=== PATIENT | female | born 1990 | race Caucasian/White ===

== ENCOUNTER 2017-11-20 18:03 | Emergency (ER) | payer BC ==
[2017-11-20 18:47] LABS: #Eosinphils 0.1 thou/uL (0.0-0.7); #Lymphocytes 2.5 thou/uL (1.20-3.40); #Monocytes 0.2 thou/uL (0.11-0.59); #Neutrophils 6.3 thou/uL (1.40-6.50); %Basophils 0.2 % (0.0-1.0); %Eosinophils 1.2 % (0.0-10.0); %Monocytes 2.5 % (0.0-10.0); %Neutrophils 69.2 % (42.0-75.0); Hemoglobin 12.6 g/dL (12.0-16.0); Mean Corpuscular HGB CONC 32.5 g/dL (32.0-36.0); Mean Corpuscular Hemoglobin 27.5 pg (27.0-31.0); Mean Corpuscular Volume 84.5 fl (81.0-99.0); Mean Platelet Volume 11.7 fL (7.4-10.4); Platelet Count 191 thou/uL (130-400); RBC Distribution Width 13.2 % (11.5-14.5); Red Blood Cell (RBC) Count 4.58 mill/uL (4.20-5.40); White Blood Cell (WBC) Count 9.1 thou/uL (4.8-10.8)
[2017-11-20 19:10] LABS: Pregnancy Test - Urine (BHCG) Negative (Negative); Pregu Control Background? CLEAR/WHITE (CLR/WHITE); Pregu Control Bar Appear? YES (CONTROL BAR); Specific Gravity 1.017 (1.002-1.036)
[2017-11-20 19:10] LABS: ALT (SGPT) 19 U/L (8-55); AST (SGOT) 21 U/L (5-34); Albumin 4.1 g/dL (3.5-5.0); Alkaline Phosphatase 116 U/L (40-150); Anion Gap 13 mmol/L (10-20); BUN (Urea Nitrogen) 12 mg/dL (7.0-18.7); Bilirubin, Total 0.3 mg/dL (0.2-1.2); CK (CPK) 149 U/L (29-168); Calc. Creatinine Clearance 0 mL/min (70-130); Calcium 9.7 mg/dL (7.8-10.44); Carbon Dioxide 24 mmol/L (22-29); Chloride 106 mmol/L (98-107); Estimated GFR-MDRD 69; Globulin 3.3 g/dL (2.4-3.5); Glucose 101 mg/dL (70-105); Lipase 51 U/L (8-78); Potassium 3.4 mmol/L (3.5-5.1); Protein, Total 7.4 g/dL (6.0-8.3); Sodium 140 mmol/L (136-145)
[2017-11-20 19:13] LABS: Bilirubin Negative (Negative); Blood, Urine Negative (Negative); Clarity CLEAR (Clear); Glucose, Urine (Dipstick) Negative (Negative); Leukocyte Negative (Negative); Nitrite Negative (Negative); Protein, Urine (Dipstick) Negative (Neg-Trace); Specific Gravity, Urine 1.018 (1.002-1.036); Urobilinogen 0.2 mg/dL (0.2-1.0); pH, Urine 6.5 (5.0-9.0)
[2017-11-20] MEDS ORDERED: Mag-Al 1200 mg/1200 mg/30 ML UDCUP ONE (19:36)
[2017-11-20] MEDS ORDERED: Ondansetron ODT 8 MG TAB ONE (19:36)
[2017-11-20] MEDS ORDERED: Lidocaine Viscous Sol 2% 15 ml UD Cup ONE (19:36)
== END 2017-11-20 20:49 | disposition home or self-care (01) ==
LOC: ERS 18:03
DX: R10.13 Epigastric pain (principal); F41.9 Anxiety disorder, unspecified; F32.9 Major depressive disorder, single episode, unspecified; Z79.899 Other long term (current) drug therapy
CPT/HCPCS: 36415; 80053; 81003; 81025; 82550; 83690; 85025; 87086; 99284

== ENCOUNTER 2017-12-02 15:19 | Outpatient (CLI) | payer BC ==
[2017-12-02 16:11] LABS: #Eosinphils 0.1 thou/uL (0.0-0.7); #Lymphocytes 2.2 thou/uL (1.20-3.40); #Monocytes 0.5 thou/uL (0.11-0.59); #Neutrophils 7.6 thou/uL (1.40-6.50); %Basophils 0.4 % (0.0-1.0); %Lymphocytes 21.2 % (21.0-51.0); %Monocytes 4.6 % (0.0-10.0); %Neutrophils 72.8 % (42.0-75.0); Hemoglobin 12.5 g/dL (12.0-16.0); Mean Corpuscular HGB CONC 31.8 g/dL (32.0-36.0); Mean Corpuscular Hemoglobin 27.1 pg (27.0-31.0); Mean Corpuscular Volume 85.2 fl (81.0-99.0); Mean Platelet Volume 9.7 fL (7.4-10.4); Platelet Count 256 thou/uL (130-400); RBC Distribution Width 13.4 % (11.5-14.5); Red Blood Cell (RBC) Count 4.61 mill/uL (4.20-5.40); White Blood Cell (WBC) Count 10.5 thou/uL (4.8-10.8)
[2017-12-02 16:12] LABS: BHCG - Serum Negative (NEGATIVE); Pregs Control Background? CLEAR/WHITE (CLR/WHITE); Pregs Control Bar Appear? YES (CONTROL BAR)
[2017-12-02 16:30] LABS: ALT (SGPT) 65 U/L (8-55); AST (SGOT) 30 U/L (5-34); Albumin 4.2 g/dL (3.5-5.0); Alkaline Phosphatase 135 U/L (40-150); Anion Gap 15 mmol/L (10-20); BUN (Urea Nitrogen) 10 mg/dL (7.0-18.7); Bilirubin, Direct 0.2 mg/dL (0.1-0.3); Bilirubin, Total 0.4 mg/dL (0.2-1.2); Calc. Creatinine Clearance 0 mL/min (70-130); Calcium 9.7 mg/dL (7.8-10.44); Carbon Dioxide 22 mmol/L (22-29); Chloride 108 mmol/L (98-107); Estimated GFR-MDRD 82; Globulin 3.4 g/dL (2.4-3.5); Glucose 83 mg/dL (70-105); Potassium 3.6 mmol/L (3.5-5.1); Protein, Total 7.6 g/dL (6.0-8.3); Sodium 141 mmol/L (136-145)
== END 2017-12-02 15:20 | disposition home or self-care (01) ==
LOC: LABBT 15:19
PROVIDERS: ATTEND Surgery
DX: Z01.812 Encounter for preprocedural laboratory examination (principal); K80.20 Calculus of gallbladder without cholecystitis without obstruction
CPT/HCPCS: 80053; 80076; 84703; 85025

== ENCOUNTER 2017-12-06 05:56 | Day surgery (SDC) | payer BC ==
[2017-12-02 15:27] VITALS: BMI 42.2
[2017-12-06] MEDS ORDERED: Lidocaine 2% w/Epinephrine 1:200K 20 ML VIAL ONE (06:43)
[2017-12-06] MEDS ORDERED: Bupivacaine PF 0.5% 30 ML VIAL ONE (06:43)
[2017-12-06] MEDS ORDERED: Fentanyl 100 MCG/2 ML VIAL ONE ×2 (06:45→08:21)
[2017-12-06] MEDS ORDERED: Ondansetron HCl/PF 4 MG/2 ML Vial ONE ×4 (06:45→15:20)
[2017-12-06] MEDS ORDERED: cefOXitin 2 GM, Syringe 1 ML in Sterile Water 10 ML SLOW IVP SCH (07:00)
[2017-12-06] MEDS ORDERED: Midazolam HCl 2 mg/2 ml Vial ONE (07:07)
[2017-12-06] MEDS ORDERED: Labetalol HCl 100 MG/20 ML VIAL ONE (08:20)
[2017-12-06] MEDS ORDERED: Promethazine HCl 25 MG/ML VIAL ONE (09:59)
--- NOTE | 2017-12-06 10:08 | OP ---
PREOPERATIVE DIAGNOSIS: Symptomatic cholelithiasis. SURGEON: Zack Lee M.D. PROCEDURE PERFORMED: Laparoscopic cholecystectomy. INDICATIONS: A 27-year-old female who has been having episodic right upper quadrant pain radiating t o the back associated with nausea. Ultrasound showed cholelithiasis. FINDINGS: She had a very fatty gallbladder. The cystic duct was small caliber. DESCRIPTION OF PROCEDURE: After informed consent was obtained, the patient was taken to the operatin g room and given general endotracheal anesthesia placed in the supine position. The abdomen was prep ped and draped in the usual fashion. Local anesthesia infiltrated subcutaneously and deep and a subu mbilical incision was performed, subcu divided sharply. The fascia grasped and two stay sutures of 0 Vicryl placed to either side of midline. Midline incised. Digital palpation revealed no local adhe sions. A blunt 10/12 mm trocar inserted. Pneumoperitoneum was created to a pressure of 15 mmHg. A 0 degree laparoscope inserted and under direct vision, three 5 mm ports placed subcostally. The gall bladder grasped and advanced superiorly. The peritoneum was dissected off and the cystic duct and ar cary were exposed. The critical view was also exposed. The artery and duct were triply ligated with Hemoclips and divided. The gallbladder was removed from its fossa utilizing electrocautery, was darvin sharon in an Endosac and removed from the abdomen through the umbilical port. Hemostasis was assured. Trocars and retractors removed. The fascia closed with interrupted 0 Vicryl suture. The skin closed with interrupted 4-0 Vicryl. Dermabond applied. The patient tolerated the procedure well and trans ferred to recovery in good condition. Sponge and needle count verified correct x2.
[2017-12-06] MEDS ORDERED: Glycopyrrolate 0.2 MG/ML 5 ML SYRINGE ONE (15:20)
[2017-12-06] MEDS ORDERED: PROPOFOL 200 MG/20 ML VIAL ONE (15:20)
[2017-12-06] MEDS ORDERED: Ketorolac Tromethamine 30 MG/ML VIAL ONE (15:20)
[2017-12-06] MEDS ORDERED: Lidocaine 1% PF 5 ML VIAL ONE (15:20)
[2017-12-06] MEDS ORDERED: Succinylcholine Chloride 20 MG/ML 10 ml SYRINGE FS ONE (15:20)
[2017-12-06] MEDS ORDERED: Dexamethasone 20 MG/5 ML VIAL ONE (15:20)
== END 2017-12-06 11:10 | disposition home or self-care (01) ==
LOC: SDC 05:56
PROVIDERS: ATTEND Surgery
PROC: 0FT44ZZ Resection of Gallbladder, Percutaneous Endoscopic Approach (ICD-10-PCS; principal; 2017-12-06)
DX: K80.10 Calculus of gallbladder with chronic cholecystitis without obstruction (principal); I10 Essential (primary) hypertension; E66.9 Obesity, unspecified; Z68.41 Body mass index [BMI] 40.0-44.9, adult; Z88.5 Allergy status to narcotic agent; Z79.899 Other long term (current) drug therapy
CPT/HCPCS: 88304; 96374; A4216; J0131; J0694; J1100; J1885; J2001; J2250; J2270; J2405; J2550; J2704; J3010; S0020

== ENCOUNTER 2018-05-15 22:33 | Emergency (ER) | payer BC ==
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
== END 2018-05-16 00:27 | disposition home or self-care (01) ==
LOC: ERS 22:33
DX: M25.521 Pain in right elbow (principal); F41.9 Anxiety disorder, unspecified; F32.9 Major depressive disorder, single episode, unspecified; Z79.899 Other long term (current) drug therapy; W22.8XXA Striking against or struck by other objects, initial encounter

== ENCOUNTER 2018-05-17 16:37 | Outpatient (CLI) | payer BC | END 2018-05-17 16:38 | disposition home or self-care (01) | LOC: BICRAD 16:37 | PROVIDERS: ATTEND Chiropractor | DX: M25.511 Pain in right shoulder (principal) ==

== ENCOUNTER 2019-01-20 14:10 | Outpatient (CLI) | payer BC ==
--- NOTE | 2019-01-20 15:59 | RAD ---
CHEST TWO VIEWS: HISTORY: Chest pain with breathing. FINDINGS: Two views of the chest show normal sized cardiomediastinal silhouette. There is no evidence of consol idation, mass, or pleural effusion. The bones are unremarkable. IMPRESSION: No evidence of acute cardiopulmonary disease. POS: [facility]
== END 2019-01-20 14:11 | disposition home or self-care (01) ==
LOC: BICRAD 14:10
PROVIDERS: ATTEND Family Medicine
DX: R07.1 Chest pain on breathing (principal)
CPT/HCPCS: 71046

== ENCOUNTER 2019-04-05 19:28 | Emergency (ER) | payer BC ==
[2019-04-05 20:34] LABS: #Basophils 0.1 thou/uL (0.0-0.2); #Eosinphils 0.1 thou/uL (0.0-0.7); #Lymphocytes 2.5 thou/uL (1.20-3.40); #Monocytes 0.5 thou/uL (0.11-0.59); #Neutrophils 7.5 thou/uL (1.40-6.50); %Basophils 0.5 % (0.0-1.0); %Eosinophils 1.1 % (0.0-10.0); %Lymphocytes 23.4 % (21.0-51.0); Hemoglobin 12.2 g/dL (12.0-16.0); Mean Corpuscular HGB CONC 33.1 g/dL (32.0-36.0); Mean Corpuscular Volume 84.5 fL (78.0-98.0); Mean Platelet Volume 8.6 fL (7.4-10.4); Platelet Count 247 thou/uL (130-400); Red Blood Cell (RBC) Count 4.37 mill/uL (4.20-5.40); White Blood Cell (WBC) Count 10.7 thou/uL (4.8-10.8)
[2019-04-05 20:36] LABS: Bilirubin Negative (Negative); Blood, Urine Negative (Negative); Clarity CLEAR (Clear); Glucose, Urine (Dipstick) Negative (Negative); Leukocyte Negative (Negative); Nitrite Negative (Negative); Protein, Urine (Dipstick) Negative (Neg-Trace); Specific Gravity, Urine 1.009 (1.002-1.036); Urobilinogen 0.2 mg/dL (0.2-1.0)
[2019-04-05] MEDS ORDERED: Ondansetron PF 4 MG/2 ML Vial ONE (20:41)
[2019-04-05 20:48] LABS: BHCG - Serum Negative (NEGATIVE); Pregs Control Background? CLEAR/WHITE (CLR/WHITE); Pregs Control Bar Appear? YES (CONTROL BAR)
[2019-04-05 20:56] LABS: ALT (SGPT) 14 U/L (8-55); AST (SGOT) 10 U/L (5-34); Alkaline Phosphatase 112 U/L (40-150); Anion Gap 12 mmol/L (10-20); BUN (Urea Nitrogen) 8 mg/dL (7.0-18.7); Bilirubin, Total 0.5 mg/dL (0.2-1.2); Calc. Creatinine Clearance 0 mL/min (70-130); Calcium 9.2 mg/dL (7.8-10.44); Carbon Dioxide 22 mmol/L (22-29); Chloride 107 mmol/L (98-107); Estimated GFR-MDRD 74; Globulin 3.1 g/dL (2.4-3.5); Glucose 108 mg/dL (70-105); Lipase 37 U/L (8-78); Potassium 3.3 mmol/L (3.5-5.1); Protein, Total 7.1 g/dL (6.0-8.3); Sodium 138 mmol/L (136-145)
--- NOTE | 2019-04-05 21:14 | CT ---
CT ABDOMEN AND PELVIS WITH IV CONTRAST 04/05/2019 CLINICAL INFORMATION: Lower abdominal pain for 6 days. COMPARISON: None. Technique: Multiple contiguous axial CT images are obtained through the abdomen and pelvis with IV contrast. Cor onal reformatted images are provided. FINDINGS: Lower Chest: within normal limits. Vessels: Abdominal aorta is normal in caliber. Incidental note is made of a retroaortic left renal ve in. Abdomen: Portal vein:Patent Gallbladder: Postcholecystectomy changes. Liver: There is a punctate too small to characterize hypodense lesion in the dome of the liver. Spleen: within normal limits. Pancreas: within normal limits. Adrenals: within normal limits. Kidneys: within normal limits. Bowel: Normal caliber. Appendix: The appendix is visualized and normal in caliber. Peritoneum: No ascites or free air; no fluid collection. Mesentery and Retroperitoneum: No enlarged mesenteric or retroperitoneal lymph nodes. Abdominal Wall: Small fat-containing midline ventral abdominal wall hernia in a supraumbilical locati on. Pelvis: Reproductive Organs: No pelvic masses. Pelvis within normal limits. Bladder: Decompressed but grossly within normal limits. Bones: within normal limits. IMPRESSION: 1. No acute findings are seen in the abdomen or pelvis. 2. Postcholecystectomy changes. 3. Small fat containing ventral abdominal wall hernia. 4. No CT evidence of appendicitis.
[2019-04-05] MEDS ORDERED: Acetaminophen 500 MG TAB ONE (22:01)
== END 2019-04-05 21:57 | disposition home or self-care (01) ==
LOC: ERS 19:28
DX: R10.31 Right lower quadrant pain (principal); I10 Essential (primary) hypertension; F41.9 Anxiety disorder, unspecified; F32.9 Major depressive disorder, single episode, unspecified; Z79.899 Other long term (current) drug therapy
CPT/HCPCS: 74177; 80053; 81003; 83690; 84703; 85025; 96374; J2405

== ENCOUNTER 2019-05-08 08:27 | Outpatient (CLI) | payer BC ==
[2019-05-08 09:29] LABS: #Eosinphils 0.1 thou/uL (0.0-0.7); #Lymphocytes 1.7 thou/uL (1.20-3.40); #Monocytes 0.3 thou/uL (0.11-0.59); #Neutrophils 6.6 thou/uL (1.40-6.50); %Basophils 0.4 % (0.0-1.0); %Eosinophils 0.9 % (0.0-10.0); %Lymphocytes 19.8 % (21.0-51.0); %Monocytes 3.4 % (0.0-10.0); %Neutrophils 75.5 % (42.0-75.0); Hemoglobin 12.4 g/dL (12.0-16.0); Mean Corpuscular HGB CONC 32.3 g/dL (32.0-36.0); Mean Corpuscular Hemoglobin 27.7 pg (27.0-31.0); Mean Corpuscular Volume 85.6 fL (78.0-98.0); Mean Platelet Volume 8.7 fL (7.4-10.4); Platelet Count 226 thou/uL (130-400); RBC Distribution Width 13.2 % (11.5-14.5); Red Blood Cell (RBC) Count 4.49 mill/uL (4.20-5.40); White Blood Cell (WBC) Count 8.7 thou/uL (4.8-10.8)
[2019-05-08 09:35] LABS: BHCG - Serum Negative (NEGATIVE); Pregs Control Background? CLEAR/WHITE (CLR/WHITE); Pregs Control Bar Appear? YES (CONTROL BAR)
[2019-05-08 09:50] LABS: ALT (SGPT) 19 U/L (8-55); AST (SGOT) 13 U/L (5-34); Albumin 3.9 g/dL (3.5-5.0); Alkaline Phosphatase 118 U/L (40-150); Anion Gap 13 mmol/L (10-20); BUN (Urea Nitrogen) 9 mg/dL (7.0-18.7); Bilirubin, Total 0.4 mg/dL (0.2-1.2); Calc. Creatinine Clearance 0 mL/min (70-130); Calcium 9.4 mg/dL (7.8-10.44); Carbon Dioxide 24 mmol/L (22-29); Chloride 106 mmol/L (98-107); Estimated GFR-MDRD 78; Globulin 2.8 g/dL (2.4-3.5); Glucose 128 mg/dL (70-105); Potassium 3.7 mmol/L (3.5-5.1); Protein, Total 6.7 g/dL (6.0-8.3); Sodium 139 mmol/L (136-145)
== END 2019-05-08 08:28 | disposition home or self-care (01) ==
LOC: LABBT 08:27
PROVIDERS: ATTEND Surgery
DX: Z01.818 Encounter for other preprocedural examination (principal); K43.2 Incisional hernia without obstruction or gangrene
CPT/HCPCS: 80053; 84703; 85025; 93005; 93010

== ENCOUNTER 2019-05-12 11:02 | Day surgery (SDC) | payer BC ==
[2019-05-08 08:44] VITALS: BMI 40.8
[2019-05-12] MEDS ORDERED: Midazolam HCl 2 mg/2 ml Vial ONE (11:53)
[2019-05-12] MEDS ORDERED: Bupivacaine/Epinephrine 0.25% 30 ML VIAL ONE (12:02)
[2019-05-12] MEDS ORDERED: Fentanyl 100 MCG/2 ML VIAL ONE ×2 (12:15→13:48)
[2019-05-12] MEDS ORDERED: Morphine 4 MG/ML VIAL ONE (14:04)
[2019-05-12] MEDS ORDERED: Morphine 2 MG/ML SYRINGE ONE ×3 (14:18→16:46)
[2019-05-12] MEDS ORDERED: Lidocaine 1% PF 5 ML VIAL ONE (14:39)
[2019-05-12] MEDS ORDERED: PROPOFOL 200 MG/20 ML VIAL ONE (14:39)
[2019-05-12] MEDS ORDERED: Glycopyrrolate 0.2 MG/ML 5 ML SYRINGE ONE (14:39)
[2019-05-12] MEDS ORDERED: Ondansetron PF 4 MG/2 ML Vial ONE (14:39)
[2019-05-12] MEDS ORDERED: Rocuronium Bromide 10 MG/ML (10ML VIAL) ONE (14:39)
[2019-05-12] MEDS ORDERED: Labetalol HCl 100 MG/20 ML VIAL ONE (15:05)
[2019-05-12] MEDS ORDERED: traMADol HCl 50 MG TAB ONE (16:14)
--- NOTE | 2019-05-12 18:50 | OP ---
DATE OF PROCEDURE: 05/12/2019 PREOPERATIVE DIAGNOSIS: Incisional hernia. POSTOPERATIVE DIAGNOSIS: Incisional hernia. PROCEDURE PERFORMED: Da Rishi laparoscopic incisional hernia repair with mesh, [address] ESTIMATED BLOOD LOSS: Minimal. COMPLICATIONS: None. SPECIMEN: None. FINDINGS: Incisional hernia. TECHNIQUE: The patient was taken to the operating room and laid supine on the operating room table. After general anesthetic was obtained, a Ansari was placed. The abdomen was prepped and draped in a sterile fashion. Left subcostal 5 mm Optiview trocar was placed in the usual fashion. High-flow pneumoperitoneum was obtained. Left lateral 8 mm robot trocar and a right subcostal 8 mm robot trocar placed under direct visualization. The 5 mm subcostal incision switched out to 11 mm balloon trocar. All ports were docked to the robot. The peritoneum was taken down as the preperitoneal fat exposing the incisional hernia just above the umbilicus into the patient's right. There was a second small fascial defect at the umbilicus. The fascial defect and the umbilical defect were closed using one #1 continuous V-Loc. An [address] mesh was cut in a red cliff and rolled and passed into the abdomen. The exposed mesh was placed up against the posterior fascia. The nonadherent barriers left against the abdominal viscera. The needle for the V-Loc was used to hold it in place. A 2-0 V-Loc was used to sew the mesh to the posterior fascia circumferentially with good coverage around the defect. All ports were infiltrated using local anesthetic. All needles were removed from the abdomen and accounted for. Incisions were closed using 4-0 Monocryl and Dermabond. The patient was sent to Recovery in stable condition. All instrument counts, needle counts, and lap counts were correct. Job ID: [id number]
== END 2019-05-12 17:25 | disposition home or self-care (01) ==
LOC: SDC 11:02
PROVIDERS: ATTEND Surgery
PROC: 0WUF4JZ Supplement Abdominal Wall with Synthetic Substitute, Percutaneous Endoscopic Approach (ICD-10-PCS; principal; 2019-05-12)
DX: K43.2 Incisional hernia without obstruction or gangrene (principal); I10 Essential (primary) hypertension; F41.8 Other specified anxiety disorders; E66.9 Obesity, unspecified; Z68.41 Body mass index [BMI] 40.0-44.9, adult; Z88.5 Allergy status to narcotic agent; Z79.899 Other long term (current) drug therapy
CPT/HCPCS: C1781; J0690; J2250; J2270; J3010

== ENCOUNTER 2019-12-25 08:29 | Outpatient (CLI) | payer OTHER ==
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
== END 2019-12-25 08:30 | disposition home or self-care (01) ==
LOC: SCSMRI 08:29
PROVIDERS: ATTEND Family Medicine
DX: S61.012A Laceration without foreign body of left thumb without damage to nail, initial encounter (principal); S13.4XXD Sprain of ligaments of cervical spine, subsequent encounter; M62.838 Other muscle spasm; F41.9 Anxiety disorder, unspecified; M54.2 Cervicalgia; M54.9 Dorsalgia, unspecified; F32.9 Major depressive disorder, single episode, unspecified; M25.50 Pain in unspecified joint; M75.91 Shoulder lesion, unspecified, right shoulder; M19.011 Primary osteoarthritis, right shoulder; V87.7XXA Person injured in collision between other specified motor vehicles (traffic), initial encounter; V89.9XXS Person injured in unspecified vehicle accident, sequela

== ENCOUNTER 2021-11-25 07:01 | Outpatient (CLI) | payer BC | END 2021-11-25 07:02 | disposition home or self-care (01) | LOC: BICULT 07:01 | PROVIDERS: ATTEND Family Medicine | DX: E07.89 Other specified disorders of thyroid (principal) | CPT/HCPCS: 76536 ==

== ENCOUNTER 2022-09-10 08:07 | Outpatient (CLI) | payer BC | END 2022-09-10 08:08 | disposition home or self-care (01) | LOC: BICRAD 08:07 | PROVIDERS: ATTEND Family Medicine | DX: M51.26 Other intervertebral disc displacement, lumbar region (principal) | CPT/HCPCS: 72100 ==

== ENCOUNTER 2022-12-30 09:04 | Outpatient (CLI) | payer BC | END 2022-12-30 09:05 | disposition home or self-care (01) | LOC: SCSRAD 09:04 | PROVIDERS: ATTEND Family Medicine | DX: M79.672 Pain in left foot (principal); M77.52 Other enthesopathy of left foot and ankle ==

== ENCOUNTER 2024-03-30 07:55 | Outpatient (CLI) | payer BC | END 2024-03-30 07:56 | disposition home or self-care (01) | LOC: BICMAMMO 07:55 | PROVIDERS: ATTEND Nurse Practitioner Women's Health | DX: N63.10 Unspecified lump in the right breast, unspecified quadrant (principal) | CPT/HCPCS: 77066; G0279 ==

== ENCOUNTER 2024-12-28 10:22 | Outpatient (CLI) | payer BC | END 2024-12-28 10:23 | disposition home or self-care (01) | LOC: BICRAD 10:22 | PROVIDERS: ATTEND Family Medicine | DX: R06.02 Shortness of breath (principal); R60.0 Localized edema; I51.7 Cardiomegaly | CPT/HCPCS: 71046 ==